=== PATIENT | male | born 1955 | race Caucasian/White ===

== ENCOUNTER 2019-02-28 23:16 | Inpatient (IN) | payer SELFPAY ==
[~2019-02-28] VITALS: Ht 172.7 cm; Wt 106.0 kg
[2019-03-07 13:55] VITALS: BP 128/85
== END 2019-03-07 17:39 | disposition home or self-care (01) | DRG 291 ==
LOC: ED 03-01 00:55 → EDIP 03-01 00:57 → 5SO 03-01 01:54 → 3NW 03-06 19:30
PROVIDERS: ADMIT Internal Medicine; ATTEND Internal Medicine
DX: I50.21 Acute systolic (congestive) heart failure (principal); J18.9 Pneumonia, unspecified organism; L03.116 Cellulitis of left lower limb; D68.69 Other thrombophilia; I48.92 Unspecified atrial flutter; L03.115 Cellulitis of right lower limb; L98.491 Non-pressure chronic ulcer of skin of other sites limited to breakdown of skin; G62.9 Polyneuropathy, unspecified; F17.210 Nicotine dependence, cigarettes, uncomplicated; I48.91 Unspecified atrial fibrillation; B95.62 Methicillin resistant Staphylococcus aureus infection as the cause of diseases classified elsewhere; Z91.14 Patient's other noncompliance with medication regimen; Z79.899 Other long term (current) drug therapy
CPT/HCPCS: 36415; 71045; 71275; 80053; 80061; 83036; 83735; 83880; 84100; 84484; 85025; 85379; 85520; 85610; 85651; 86140; 87040; 87070; 87077; 87186; 87205; 93005; 93306; 93922; 93925; 93970; 96374; 99291; A9585; G0378; J0696; J1644; J1650; J3370; Q9967; J2270; J7040